=== PATIENT | female | born 1960 | race Caucasian/White ===

== ENCOUNTER 2017-02-16 05:52 | Day surgery (SDC) | payer BC, OTHER ==
[~2017-02-16 05:52] MED LIST: Dextrose 5%-0.45% NaCl 1,000 ML IV SCH; Sodium Chloride 0.9% 10 ML Syringe FLUSH PRN
[2017-02-16] MEDS ORDERED: Midazolam 1 MG/ML 2 ML SDV ONE (06:15)
[2017-02-16] MEDS ORDERED: fentaNYL 100 MCG/2 ML SDV ONE (06:15)
[2017-02-16] MEDS ORDERED: fentaNYL 100 MCG/2 ML SDV IV ONE ×3 (07:32→16:54)
[2017-02-16] MEDS ORDERED: Midazolam 1 MG/ML 2 ML SDV IV ONE ×7 (07:33→16:54)
--- NOTE | 2017-02-16 08:33 | OR ---
DATE: 02/16/2017 PROCEDURE: Total colonoscopy. INSTRUMENT USED: PCF-H180 AL Olympus video colonoscope. PREMEDICATIONS: Fentanyl 100 mcg intravenous, Versed 4 mg intravenous, nasal O2 cannula. INDICATION: Screening colonoscopic examination is done for detection of any polypoid lesions and removal, endoscopic hemostasis therapy if needed. DESCRIPTION OF PROCEDURE: Initial rectal exam was unremarkable. Rigid anoscopy was normal. The colonoscope was passed with ease up to the ileocecal area. Photographs were taken of the normal-appearing cecum identified by landmarks of appendiceal orifice and double-bulged ileocecal folds. No bleeding was noted from any of the visualized areas at the commencement of the examination. No stricture. No vascular ectasia. No large isolated ulcerations seen. No evidence of diffuse inflammatory bowel disease in the form of friability, contact bleeding, or ulcerations. No polyp or tumor mass identified. Probing the proximal sides of folds and flexures, using adequate distention, and clearing up the stool material, withdrawal of the scope was made. Cecum to rectum time over 6 minutes. No bleeding was noted from any of the visualized areas at the completion of examination. IMPRESSION: Normal study. The patient tolerated the procedure well. MODL /[id number]
[2017-02-16 09:48] VITALS: BP 136/83
== END 2017-02-16 09:50 | disposition home or self-care (01) ==
LOC: DL.ENDO 05:52
PROVIDERS: ATTEND Internal Medicine Gastroenterology
DX: Z12.11 Encounter for screening for malignant neoplasm of colon (principal); I10 Essential (primary) hypertension; Z90.710 Acquired absence of both cervix and uterus; Z98.890 Other specified postprocedural states; Z88.1 Allergy status to other antibiotic agents; Z88.2 Allergy status to sulfonamides; Z91.041 Radiographic dye allergy status; Z88.8 Allergy status to other drugs, medicaments and biological substances
CPT/HCPCS: 45378; J2250; J3010; J7042

== ENCOUNTER 2019-03-26 06:14 | Emergency (ER) | payer OTHER ==
[2019-03-26 06:33] VITALS: BP 156/97; PULSE 90
[2019-03-26] MEDS ORDERED: Sodium Chloride 0.9% 10 ML Syringe FLUSH PRN (07:21)
[2019-03-26] MEDS ORDERED: Sodium Chloride 0.9% 1,000 ML IV ONE (07:23)
[2019-03-26] MEDS ORDERED: diphenhydrAMINE 50 MG/ML SDV IVPUSH ONE (07:23)
[2019-03-26] MEDS ORDERED: methylPREDNISolone Sodium Succinate 125 MG/2 ML SDV IVPUSH ONE (07:23)
[2019-03-26] MEDS ORDERED: Famotidine 20 MG/2 ML SDV IVPUSH ONE (07:23)
--- NOTE | 2019-03-26 07:27 | EDM.PDOC ---
ED HPI GENERAL MEDICAL PROBLEM - General Chief Complaint: Allergic Reaction Stated Complaint: BROKE OUT IN RASH Time Seen by Provider: 03/26/19 06:55 Source of Information: Reports: Patient, Family, RN, RN Notes Reviewed History Limitations: Reports: No Limitations - History of Present Illness INITIAL COMMENTS - FREE TEXT/NARRATIVE: Pt to ER with c/o rash all over body. She states it began last week with a spot on the inside of the right thigh. She was seen in the clinic and given some cream for the area. The area blistered, healed, and became a dry patch of skin. She states at that time she also had some small red areas to the left side of the abdomen. She was seen in the clinic on Sunday by Clotilde Wilson with just an area on the inside of the right thigh. Then was seen this past Sunday and was given Prednisone and Zyrtec. States yesterday the rash was gone. Then was unable to get rest last night due to the rash. States she has been more tired and weak than usual. During time in the ER, the fingers of the right hand turned white, and the fingers of the left hand turned purple. Pt states that has never happened to her before. Patient states she has hx of irritable bowel, and her mother had hx of Crohn's disease. Onset: Gradual Duration: Intermittent Location: Reports: Generalized - Related Data Allergies Allergy/AdvReac Type Severity Reaction Status Date / Time erythromycin base Allergy Rash Verified 03/26/19 06:40 estrogens, conjugated Allergy Rash Verified 03/26/19 06:40 Iodinated Contrast Media Allergy Rash Verified 03/26/19 06:40 [Iodinated Contrast- Oral and IV Dye] sulfamethoxazole Allergy Rash Verified 03/26/19 06:40 [From Bactrim] trimethoprim [From Bactrim] Allergy Rash Verified 03/26/19 06:40 Home Meds: Home Meds Fluticasone Propionate 1 - 2 spray NASBOTH ASDIRECTED 02/01/17 [History] Metoprolol Succinate 1.5 tab PO DAILY 02/01/17 [History] Pyridoxine HCl (Vitamin B6) [Vitamin B-6] 1 tab PO ASDIRECTED 02/01/17 [History] amLODIPine Besylate [Amlodipine Besylate] 1 tab PO DAILY 02/01/17 [History] Acetaminophen [Arthritis Pain Relief] 650 mg PO DAILY 02/16/17 [History] Past Medical History HEENT History: Reports: Allergic Rhinitis Cardiovascular History: Reports: Hypertension Respiratory History: Reports: None Gastrointestinal History: Reports: Irritable Bowel Syndrome Genitourinary History: Reports: None 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 CARPAL TUNNEL SYNDROME Neurological History: Reports: Migraines, Vertigo Psychiatric History: Reports: None Endocrine/Metabolic History: Reports: None Hematologic History: Reports: None Immunologic History: Reports: None Oncologic (Cancer) History: Reports: None - Infectious Disease History Infectious Disease History: Reports: None - Past Surgical History Head Surgeries/Procedures: Reports: None HEENT Surgical History: Reports: Naso-Sinus Surgery, Other (See Below) Other HEENT Surgeries/Procedures: NASAL SEPTUM SURGERY Cardiovascular Surgical History: Reports: Other (See Below) Other Cardiovascular Surgeries/Procedures: NORMAL CARDIAC STRESS TEST. CARDIAC CATH Respiratory Surgical History: Reports: None GI Surgical History: Reports: Colonoscopy, Other (See Below) Other GI Surgeries/Procedures: ABDOMINAL EXPLORATION SURGERY FOR EDOMETRIOSIS. RECTAL HEMORRHOIDECTOMY INTERNAL & EXTERNAL Female Surgical History: Reports: Hysterectomy Endocrine Surgical History: Reports: None Neurological Surgical History: Reports: None Musculoskeletal Surgical History: Reports: None Oncologic Surgical History: Reports: None Dermatological Surgical History: Reports: None Social & Family History - Family History Family Medical History: Noncontributory - Tobacco Use Smoking Status *Q: Never Smoker Second Hand Smoke Exposure: No - Caffeine Use Caffeine Use: Reports: Coffee, Tea - Alcohol Use Date of Last Drink: 03/23/19 - Recreational Drug Use Recreational Drug Use: No ED ROS ALLERGIC REACTION - Review of Systems Review Of Systems: ROS reveals no pertinent complaints other than HPI. ED EXAM GENERAL NO PERIP PULSE - Physical Exam Exam: See Below Exam Limited By: No Limitations General Appearance: Alert, WD/WN, Anxious, Mild Distress Eye Exam: Bilateral Eye: Normal Inspection Ears: Normal External Exam, Hearing Grossly Normal Nose: Normal Inspection Throat/Mouth: Normal Inspection, Normal Voice, No Airway Compromise Head: Atraumatic, Normocephalic Neck: Normal Inspection, Supple, Non-Tender Respiratory/Chest: No Respiratory Distress, Lungs Clear, Normal Breath Sounds, No Accessory Muscle Use, Chest Non-Tender Cardiovascular: Normal Peripheral Pulses, Regular Rate, Rhythm, No Edema, No Gallop, No JVD, No Murmur, No Rub GI/Abdominal: Normal Bowel Sounds, Soft, Non-Tender, No Organomegaly, No Distention, No Abnormal Bruit, No Mass (Female) Exam: Deferred Rectal (Female) Exam: Deferred Back Exam: Normal Inspection, Full Range of Motion, NT Extremities: Other (fingers of right hand are cool and white, fingers of left hand are cool and purple) Neurological: Alert, Oriented Psychiatric: Normal Affect, Normal Mood, Anxious Skin Exam: Erythema, Rash (generalized raised red rash to just above the knees, to thighs, abdomen, back, neck, face, scalp. Red rash represents butterfly rash on the face. ) Lymphatic: No Adenopathy Course - Vital Signs Last Recorded V/S: Last Vital Signs Temp 96.8 F 03/26/19 06:20 Pulse 90 03/26/19 06:20 Resp 18 03/26/19 06:20 BP 156/97 H 03/26/19 06:20 Pulse Ox 98 03/26/19 06:20 - Orders/Labs/Meds Orders: Active Orders 24 hr Category Date Time Status Peripheral IV Care [RC] . DIRECTED Care 03/26/19 07:21 Active CULTURE STREP A CONFIRMATION [RM] Stat Lab 03/26/19 07:34 Results LYME, TOTAL AB TEST/REFLEX [REF] Stat Lab 03/26/19 08:00 Received STREP SCRN A RAPID W CULT CONF [RM] Stat Lab 03/26/19 07:34 Results [facility] [REF] Stat Lab 03/26/19 08:00 Received Sodium Chloride 0.9% [Saline Flush] Med 03/26/19 07:21 Active 10 ml FLUSH ASDIRECTED PRN Peripheral IV Insertion Adult [OM.PC] Stat Oth 03/26/19 07:20 Ordered Medication Orders Sodium Chloride (Saline Flush) 10 ml FLUSH ASDIRECTED PRN PRN Reason: Keep Vein Open Last Admin: 03/26/19 07:39 Dose: 10 ml Labs: Laboratory Tests 03/26/19 03/26/19 03/26/19 Range/Units 07:21 07:28 07:28 WBC 11.6 H (5.0-10.0) 10^3/uL RBC 5.16 (4.2-5.4) 10^6/uL Hgb 14.9 (12.0-16.0) g/dL Hct 44.4 (37.0-47.0) % MCV 86.0 (80-100) fL MCH 28.9 (27.0-34.0) pg MCHC 33.6 (33.0-35.0) g/dL Plt Count 348 (150-450) 10^3/uL Neut % (Auto) 62.6 (42.2-75.2) % Lymph % (Auto) 34.1 (20.5-50.1) % [place] % (Auto) 3.2 (2-8) % Eos % (Auto) 0.1 L (1.0-3.0) % Baso % (Auto) 0.0 (0.0-1.0) % ESR 10 (0-20) mm/hr Sodium 141 (135-145) mmol/L Potassium 3.4 L (3.6-5.0) mmol/L Chloride 107 (101-111) mmol/L Carbon Dioxide 24.0 (21.0-31.0) mmol/L Anion Gap 13.4 BUN 24 H (7-18) mg/dL Creatinine 0.6 (0.6-1.3) mg/dL Est Cr Clr Drug Dosing 73.41 mL/min Estimated GFR (MDRD) > 60 BUN/Creatinine Ratio 40.00 Glucose 90 (74-105) mg/dL Calcium 8.8 (8.4-10.2) mg/dl Total Bilirubin 0.6 (0.2-1.0) mg/dL AST 24 (10-42) IU/L ALT 20 (10-60) IU/L Alkaline Phosphatase 61 (42-121) IU/L C-Reactive Protein (0.0-1.3) mg/dL Total Protein 7.3 (6.7-8.2) g/dl Albumin 3.9 (3.2-5.5) g/dl Globulin 3.4 Albumin/Globulin Ratio 1.15 Urine Color Yellow (YELLOW) Urine Appearance Slightly cloudy (CLEAR) Urine pH 7.0 (5.0-9.0) Ur Specific [place] 1.010 (1.005-1.030) Urine Protein Negative (NEGATIVE) Urine Glucose (UA) Negative (NEGATIVE) Urine Ketones Negative (NEGATIVE) Urine Occult Blood Negative (NEGATIVE) Urine Nitrite Negative (NEGATIVE) Urine Bilirubin Negative (NEGATIVE) Urine Urobilinogen 0.2 (0.2-1.0) mg/dL Ur Leukocyte Esterase Negative (NEGATIVE) Monoscreen Negative 03/26/19 Range/Units 07:28 WBC (5.0-10.0) 10^3/uL RBC (4.2-5.4) 10^6/uL Hgb (12.0-16.0) g/dL Hct (37.0-47.0) % MCV (80-100) fL MCH (27.0-34.0) pg MCHC (33.0-35.0) g/dL Plt Count (150-450) 10^3/uL Neut % (Auto) (42.2-75.2) % Lymph % (Auto) (20.5-50.1) % [place] % (Auto) (2-8) % Eos % (Auto) (1.0-3.0) % Baso % (Auto) (0.0-1.0) % ESR (0-20) mm/hr Sodium (135-145) mmol/L Potassium (3.6-5.0) mmol/L Chloride (101-111) mmol/L Carbon Dioxide (21.0-31.0) mmol/L Anion Gap BUN (7-18) mg/dL Creatinine (0.6-1.3) mg/dL Est Cr Clr Drug Dosing mL/min Estimated GFR (MDRD) BUN/Creatinine Ratio Glucose (74-105) mg/dL Calcium (8.4-10.2) mg/dl Total Bilirubin (0.2-1.0) mg/dL AST (10-42) IU/L ALT (10-60) IU/L Alkaline Phosphatase (42-121) IU/L C-Reactive Protein 0.5 (0.0-1.3) mg/dL Total Protein (6.7-8.2) g/dl Albumin (3.2-5.5) g/dl Globulin Albumin/Globulin Ratio Urine Color (YELLOW) Urine Appearance (CLEAR) Urine pH (5.0-9.0) Ur Specific [place] (1.005-1.030) Urine Protein (NEGATIVE) Urine Glucose (UA) (NEGATIVE) Urine Ketones (NEGATIVE) Urine Occult Blood (NEGATIVE) Urine Nitrite (NEGATIVE) Urine Bilirubin (NEGATIVE) Urine Urobilinogen (0.2-1.0) mg/dL Ur Leukocyte Esterase (NEGATIVE) Monoscreen Meds: Medications Generic Name Dose Route Start Last Admin Trade Name Freq PRN Reason Stop Dose Admin Sodium Chloride 10 ml 03/26/19 07:21 03/26/19 07:39 Saline Flush FLUSH 10 ml ASDIRECTED PRN Administration Keep Vein Open Discontinued Medications Generic Name Dose Route Start Last Admin Trade Name Freq PRN Reason Stop Dose Admin Diphenhydramine HCl 25 mg 03/26/19 07:23 03/26/19 07:38 Benadryl IVPUSH 03/26/19 07:24 25 mg ONETIME ONE Administration Famotidine 20 mg 03/26/19 07:23 03/26/19 07:39 Pepcid IVPUSH 03/26/19 07:24 20 mg ONETIME ONE Administration Sodium Chloride 1,000 mls @ 999 mls/hr 03/26/19 07:23 03/26/19 07:38 Normal Saline IV 03/26/19 08:23 999 mls/hr .BOLUS ONE Administration Methylprednisolone Sodium Succinate 125 mg 03/26/19 07:23 03/26/19 07:39 Solu-Medrol IVPUSH 03/26/19 07:24 125 mg ONETIME ONE Administration - Re-Assessments/Exams Free Text/Narrative Re-Assessment/Exam: 03/26/19 09:41 Informed the patient of lab findings. Informed patient and of the possibility of lupus. Explained the exam findings being concurrent with the findings of lupus. Instructed the patient to make an appointment with her primary care provider for further testing. Patient and state understanding. Patient case discussed with Clotilde Wilsno who states she will see the patient in the clinic and continue testing and care for the patient. Departure - Departure Time of Disposition: 09:18 Disposition: Home, Self-Care 01 Condition: Fair Clinical Impression: Rash Raynaud phenomenon Qualifiers: Raynaud?s-associated gangrene presence: without gangrene Qualified Code(s): I73.00 - Raynaud's syndrome without gangrene - Discharge Information *PRESCRIPTION DRUG MONITORING PROGRAM REVIEWED*: No *COPY OF PRESCRIPTION DRUG MONITORING REPORT IN PATIENT DOE: No Instructions: Raynaud Phenomenon Forms: ED Department Discharge Additional Instructions: Follow up with Clotilde Wilson NP at [facility] May use Benadryl as directed May use Zyrtec as directed - My Orders Last 24 Hours: My Active Orders 03/26/19 07:20 Peripheral IV Insertion Adult [OM.PC] Stat 03/26/19 07:21 Peripheral IV Care [RC] . DIRECTED Sodium Chloride 0.9% [Saline Flush] 10 ml FLUSH ASDIRECTED PRN 03/26/19 07:34 CULTURE STREP A CONFIRMATION [RM] Stat STREP SCRN A RAPID W CULT CONF [RM] Stat 03/26/19 08:00 LYME, TOTAL AB TEST/REFLEX [REF] Stat [facility] [REF] Stat - Assessment/Plan Last 24 Hours: My Active Orders 03/26/19 07:20 Peripheral IV Insertion Adult [OM.PC] Stat 03/26/19 07:21 Peripheral IV Care [RC] . DIRECTED Sodium Chloride 0.9% [Saline Flush] 10 ml FLUSH ASDIRECTED PRN 03/26/19 07:34 CULTURE STREP A CONFIRMATION [RM] Stat STREP SCRN A RAPID W CULT CONF [RM] Stat 03/26/19 08:00 LYME, TOTAL AB TEST/REFLEX [REF] Stat [facility] [REF] Stat
[2019-03-26 08:12] LABS: ANION GAP 13.4; CHLORIDE,CL 107 mmol/L (101-111); SODIUM,NA 141 mmol/L (135-145)
== END 2019-03-26 09:40 | disposition home or self-care (01) ==
LOC: DL.ED 06:14
DX: R21 Rash and other nonspecific skin eruption (principal); I73.00 Raynaud's syndrome without gangrene; I10 Essential (primary) hypertension; Z88.1 Allergy status to other antibiotic agents; Z91.041 Radiographic dye allergy status; Z88.2 Allergy status to sulfonamides; Z88.8 Allergy status to other drugs, medicaments and biological substances; Z79.899 Other long term (current) drug therapy
CPT/HCPCS: 36415; 80053; 81003; 85025; 85651; 86140; 86308; 86618; 86788; 87081; 87430; 96361; 96374; 96375; 99282; J1200; J2930; J3490; J7030; 86617